=== PATIENT | female | born 1965 | race African-American/Black ===

== ENCOUNTER 2023-11-30 10:52 | Emergency (ER) | payer BC, OTHER ==
[~2023-11-30] VITALS: Ht 165.1 cm; Wt 99.8 kg
[2023-11-30 10:57] VITALS: O2SAT 98
[2023-11-30] MEDS ORDERED: OXYCODONE (10:57)
[2023-11-30 12:57] LABS: INR 0.9; PROTHROMBIN TIME 10.5 sec (9.6-11.0)
[2023-11-30 12:58] LABS: CHLORIDE 106 mEq/L (98-107); POTASSIUM 3.7 mEq/L (3.5-5.1); SODIUM 141 mEq/L (136-145)
[2023-11-30 12:59] LABS: CARBON DIOXIDE 32 mEq/L (21-32)
[2023-11-30 13:03] LABS: BASOPHILS % 0.4 % (0.0-2.0); EOSINOPHILS % 1.4 % (0.0-5.0); HEMATOCRIT. 35.2 % (36.0-48.0); HEMOGLOBIN. 11.5 g/dL (12.0-16.0); LYMPHOCYTES % 18.3 % (20.0-50.0); MEAN CORPUSCULAR HEMOGLOBIN 30.2 pg (28.0-32.0); MEAN CORPUSCULAR HGB CONC 32.8 g/dL (31.0-37.0); MEAN CORPUSCULAR VOLUME 92.2 fL (81.0-99.0); MEAN PLATELET VOLUME 8.7 fl (7.4-10.4); MONOCYTES % 9.6 % (2.0-8.0); NEUTROPHILS % 70.3 % (40.0-76.0); PLATELET 289 x1000/uL (130-400); RED BLOOD CELL COUNT 3.82 mill/uL (4.2-5.4); WHITE BLOOD COUNT 7.6 x1000/uL (4.5-11.0)
[2023-11-30 13:04] LABS: CREATININE 0.9 mg/dL (0.6-1.0); GLUCOSE 84 mg/dL (70-105); UREA NITROGEN BLOOD 15 mg/dL (9-23)
[2023-11-30 13:05] LABS: TROPONIN I HIGH SENSITIVITY 5 ng/L (3.0-34)
[2023-11-30] MEDS: SODIUM CHLORIDE 0.9% 500 ML IV ONE (14:11)
[2023-11-30 14:50] LABS: TROPONIN I HIGH SENSITIVITY 4 ng/L (3.0-34)
[2023-11-30] MEDS: POLYETHYLENE GLYCOL 3350 (17GM) 1 DOSE PACK PO NR (15:41)
[2023-11-30 16:59] VITALS: BP 128/85; PULSE 86; RESP 20; TEMP 37.05852; O2SAT 98
== END 2023-11-30 17:50 | disposition short-term general hospital (02) ==
LOC: ER 11:02
DX: R55 Syncope and collapse (principal); E11.9 Type 2 diabetes mellitus without complications; I10 Essential (primary) hypertension; Z88.0 Allergy status to penicillin; Z88.1 Allergy status to other antibiotic agents; Z96.641 Presence of right artificial hip joint
CPT/HCPCS: 80048; 83880; 85025; 85610; 84484; 36415; 71045; 72170; 70450; 93005; 96360; 99285; Z7610 ×6; J7040